=== PATIENT | female | born 1945 | race Two or more races ===

== ENCOUNTER 2017-07-26 08:44 | Outpatient (CLI) | payer OTHER ==
[~2017-07-26 08:44] MED LIST: CEFADROXIL500 MG PO; EVISTA60 MG; LIPITOR40 MG PO; NEURONTIN800 MG PO; PERCOCET 5/3251 TAB PO; SINGULAIR 10MG10 MG; XARELTO10 MG PO
== END 2017-07-26 11:45 | disposition home or self-care (01) ==
LOC: TOM 08:44
DX: K57.32 Diverticulitis of large intestine without perforation or abscess without bleeding (principal); R10.32 Left lower quadrant pain; R19.4 Change in bowel habit
CPT/HCPCS: 74177; Q9965

== ENCOUNTER 2018-02-13 10:55 | Outpatient (CLI) | payer OTHER | END 2018-02-13 11:17 | disposition home or self-care (01) | LOC: RAD 501 10:55 | DX: M25.561 Pain in right knee (principal); M25.562 Pain in left knee ==

== ENCOUNTER → 2018-08-14 | Outpatient (CLI) | payer OTHER ==
[~2018-08-14] MED LIST changes: +CYMBALTA30 MG PO; +HYOSCYAMINE0.125 M1 SL; +INTESTINEX680 M1 PO; +NORFLEX100MG PO; +NeurRONTin 400MG CAP PO
== END | disposition home or self-care (01) ==
LOC: RAD 501 08:47
DX: K57.32 Diverticulitis of large intestine without perforation or abscess without bleeding (principal); R10.32 Left lower quadrant pain; R19.4 Change in bowel habit

== ENCOUNTER 2018-08-19 08:04 | Outpatient (CLI) | payer OTHER ==
[~2018-08-19 08:04] MED LIST changes: -CYMBALTA30 MG PO; -HYOSCYAMINE0.125 M1 SL; -INTESTINEX680 M1 PO; -NORFLEX100MG PO; -NeurRONTin 400MG CAP PO
== END 2018-08-19 08:32 | disposition home or self-care (01) ==
LOC: LAB 08:04
DX: I10 Essential (primary) hypertension (principal)

== ENCOUNTER 2018-08-22 11:30 | Inpatient (IN) | payer OTHER ==
[~2018-08-22] VITALS: Ht 152.4 cm; Wt 54.9 kg
[2018-09-02] MEDS ORDERED: NORFLEX100MG PO (09:56)
[2018-09-02] MEDS ORDERED: HYOSCYAMINE0.125 M1 SL (09:56)
[2018-09-02] MEDS ORDERED: CYMBALTA30 MG PO (09:58)
[2018-09-02] MEDS ORDERED: NeurRONTin 400MG CAP PO (09:58)
[2018-09-02] MEDS ORDERED: INTESTINEX680 M1 PO (09:59)
== END 2018-09-02 13:09 | disposition home or self-care (01) | DRG 330 ==
LOC: ADM 11:30 → SURH 11:30 → EDSTATUS 11:30 → SURH 08-29 06:49 → O/R 08-29 06:49 → SURH 08-29 08:30
PROVIDERS: ADMIT Surgery
PROC: 0DJD8ZZ Inspection of Lower Intestinal Tract, Via Natural or Artificial Opening Endoscopic (ICD-10-PCS; 2018-08-29)
PROC: 0DTN4ZZ Resection of Sigmoid Colon, Percutaneous Endoscopic Approach (ICD-10-PCS; principal; 2018-08-29 08:30)
DX: K57.32 Diverticulitis of large intestine without perforation or abscess without bleeding (principal); D62 Acute posthemorrhagic anemia; N73.6 Female pelvic peritoneal adhesions (postinfective); I10 Essential (primary) hypertension; G89.18 Other acute postprocedural pain; M54.5 Low back pain; M81.8 Other osteoporosis without current pathological fracture; Z96.651 Presence of right artificial knee joint

== ENCOUNTER 2018-11-18 10:34 | Outpatient (CLI) | payer OTHER ==
[~2018-11-18 10:34] MED LIST changes: +CYMBALTA30 MG PO; +HYOSCYAMINE0.125 M1 SL; +INTESTINEX680 M1 PO; +NORFLEX100MG PO; +NeurRONTin 400MG CAP PO
== END 2018-11-18 10:41 | disposition home or self-care (01) ==
LOC: RAD 501 10:34
DX: T84.038A Mechanical loosening of other internal prosthetic joint, initial encounter (principal)

== ENCOUNTER 2019-06-27 11:03 | Inpatient (IN) | payer OTHER ==
[~2019-06-27] VITALS: Ht 149.9 cm; Wt 61.7 kg
[~2019-06-27 11:03] MED LIST changes: +NEURONTIN800 MG; -NEURONTIN800 MG PO
[2019-07-15] MEDS ORDERED: ATENOLOL50 MG PO (09:36)
[2019-07-15] MEDS ORDERED: VALACYCLOVIR500 MG PO (09:36)
[2019-07-15] MEDS ORDERED: CLARITIN10 M1 PO (09:37)
[2019-07-15] MEDS ORDERED: ASA81 MG PO (09:37)
[2019-07-15] MEDS ORDERED: AZELASTINE137 MCG/0. NASAL (09:38)
[2019-07-15] MEDS ORDERED: NASAL ALLERGY16.9 ML NASAL (09:38)
[2019-07-24] MEDS ORDERED: DUI500 PO (15:25)
[2019-07-24] MEDS ORDERED: PERCOCET 5-3251 EACH PO (15:25)
== END 2019-07-24 16:02 | disposition home or self-care (01) | DRG 483 ==
LOC: O/R 07-22 05:05 → SURH 07-22 05:05 → SURG 07-22 08:15 → SURH 07-22 14:46 → SURG 07-22 15:30 → SURH 07-24 16:02
PROVIDERS: ADMIT Orthopaedic Surgery
PROC: 0RNJ0ZZ Release Right Shoulder Joint, Open Approach (ICD-10-PCS; 2019-07-22)
PROC: 0RRJ0JZ Replacement of Right Shoulder Joint with Synthetic Substitute, Open Approach (ICD-10-PCS; principal; 2019-07-22 15:30)
DX: M19.011 Primary osteoarthritis, right shoulder (principal); D62 Acute posthemorrhagic anemia; M75.101 Unspecified rotator cuff tear or rupture of right shoulder, not specified as traumatic; I10 Essential (primary) hypertension

== ENCOUNTER 2019-12-29 10:13 | Emergency (ER) | payer OTHER ==
[~2019-12-29] VITALS: Ht 149.9 cm; Wt 64.9 kg
[~2019-12-29 10:13] MED LIST changes: +ASA81 MG PO; +ATENOLOL50 MG PO; +AZELASTINE137 MCG/0. NASAL; +CLARITIN10 M1 PO; +DUI500 PO; +NASAL ALLERGY16.9 ML NASAL; +PERCOCET 5-3251 EACH PO; +VALACYCLOVIR500 MG PO
[2019-12-29] MEDS ORDERED: INTESTINEX680 M1 PO (16:04)
[2019-12-29] MEDS ORDERED: PEPCID AC20 MG PO (16:04)
== END 2019-12-29 16:16 | disposition home or self-care (01) ==
LOC: ER 10:13
DX: R10.32 Left lower quadrant pain (principal); Z03.818 Encounter for observation for suspected exposure to other biological agents ruled out; R53.81 Other malaise

== ENCOUNTER 2020-02-24 07:23 | Outpatient (CLI) | payer OTHER ==
[~2020-02-24 07:23] MED LIST changes: +PEPCID AC20 MG PO
== END 2020-02-24 07:33 | disposition home or self-care (01) ==
LOC: MRI 07:23
PROVIDERS: ATTEND Internal Medicine Hematology & Oncology
DX: D51.0 Vitamin B12 deficiency anemia due to intrinsic factor deficiency (principal); D51.3 Other dietary vitamin B12 deficiency anemia; K62.5 Hemorrhage of anus and rectum; R19.5 Other fecal abnormalities; K57.30 Diverticulosis of large intestine without perforation or abscess without bleeding; I10 Essential (primary) hypertension; E78.2 Mixed hyperlipidemia; Z86.010 Personal history of colon polyps; A60.00 Herpesviral infection of urogenital system, unspecified; E03.8 Other specified hypothyroidism
CPT/HCPCS: 74183; A9575

== ENCOUNTER 2020-03-13 13:35 | Emergency (ER) | payer OTHER ==
[~2020-03-13] VITALS: Ht 149.9 cm; Wt 64.9 kg
== END 2020-03-13 17:57 | disposition home or self-care (01) ==
LOC: ER 13:35
DX: K59.09 Other constipation (principal); R10.32 Left lower quadrant pain

== ENCOUNTER 2020-04-12 13:24 | Emergency (ER) | payer OTHER ==
[~2020-04-12] VITALS: Ht 149.9 cm; Wt 64.9 kg
[2020-04-12] MEDS ORDERED: MUPIROCIN1 G1 TOP (14:48)
[2020-04-12] MEDS ORDERED: DUI500 PO (14:48)
== END 2020-04-12 15:19 | disposition home or self-care (01) ==
LOC: ER 13:24
DX: S30.871A Other superficial bite of abdominal wall, initial encounter (principal); W54.0XXA Bitten by dog, initial encounter; Y93.89 Activity, other specified; Y92.89 Other specified places as the place of occurrence of the external cause; Y99.8 Other external cause status

== ENCOUNTER 2020-05-03 07:14 | Emergency (ER) | payer OTHER ==
[~2020-05-03] VITALS: Ht 149.9 cm; Wt 64.9 kg
[~2020-05-03 07:14] MED LIST changes: +MUPIROCIN1 G1 TOP
[2020-05-03] MEDS ORDERED: VALACYCLOVIR500 MG PO (07:29)
[2020-05-03] MEDS ORDERED: ULTRAM50 MG PO (14:33)
== END 2020-05-03 14:44 | disposition home or self-care (01) ==
LOC: ER 07:14
DX: K66.0 Peritoneal adhesions (postprocedural) (postinfection) (principal); R10.11 Right upper quadrant pain; Z03.818 Encounter for observation for suspected exposure to other biological agents ruled out; Z60.2 Problems related to living alone

== ENCOUNTER 2020-07-29 11:43 | Emergency (ER) | payer OTHER ==
[~2020-07-29] VITALS: Ht 149.9 cm; Wt 65.3 kg
[~2020-07-29 11:43] MED LIST changes: +ULTRAM50 MG PO
[2020-07-29] MEDS ORDERED: TENORMIN50 M1 (12:33)
[2020-07-29] MEDS ORDERED: ALLERGY RELIE15.8 ML (12:34)
[2020-07-29] MEDS ORDERED: GRALISE600 MG (12:34)
[2020-07-29] MEDS ORDERED: PANTOPRAZOLE SO40 M2 (12:36)
[2020-07-30] MEDS ORDERED: PEPCID AC20 MG PO (12:57)
[2020-07-30] MEDS ORDERED: LEVSIN/SL0.125 MG PO (12:57)
== END 2020-07-30 13:32 | disposition home or self-care (01) ==
LOC: ER 11:43
DX: K29.60 Other gastritis without bleeding (principal); R10.11 Right upper quadrant pain

== ENCOUNTER 2020-08-06 07:03 | Emergency (ER) | payer OTHER ==
[~2020-08-06] VITALS: Ht 149.9 cm; Wt 64.9 kg
[~2020-08-06 07:03] MED LIST changes: +ALLERGY RELIE15.8 ML; +GRALISE600 MG; +LEVSIN/SL0.125 MG PO; +PANTOPRAZOLE SO40 M2; +TENORMIN50 M1
[2020-08-06] MEDS ORDERED: VITAMIN B-121000 MCG PO (07:27)
[2020-08-06] MEDS ORDERED: SINGULAIR10 MG PO (07:28)
[2020-08-06] MEDS ORDERED: CALTRATE 600+D1 EAC1 PO (07:28)
== END 2020-08-06 18:43 | disposition home or self-care (01) ==
LOC: ER 07:03
DX: K52.89 Other specified noninfective gastroenteritis and colitis (principal); Z03.818 Encounter for observation for suspected exposure to other biological agents ruled out; Z60.2 Problems related to living alone

== ENCOUNTER 2020-08-13 13:03 | Emergency (ER) | payer OTHER ==
[~2020-08-13] VITALS: Ht 149.9 cm; Wt 64.9 kg
[~2020-08-13 13:03] MED LIST changes: +CALTRATE 600+D1 EAC1 PO; +SINGULAIR10 MG PO; +VITAMIN B-121000 MCG PO
[2020-08-13] MEDS ORDERED: CARAFATE1 GM PO (16:35)
[2020-08-13] MEDS ORDERED: PEPCID AC20 MG PO (16:35)
== END 2020-08-13 16:40 | disposition home or self-care (01) ==
LOC: ER 13:03
DX: K29.60 Other gastritis without bleeding (principal)

== ENCOUNTER 2020-11-23 07:12 | Emergency (ER) | payer OTHER ==
[~2020-11-23] VITALS: Ht 149.9 cm; Wt 64.9 kg
[~2020-11-23 07:12] MED LIST changes: +CARAFATE1 GM PO
[2020-11-23] MEDS ORDERED: ECOTRIN81 MG (07:32)
[2020-11-23] MEDS ORDERED: PEPCID AC20 MG PO (13:00)
[2020-11-23] MEDS ORDERED: KETO10TA2 PO (13:00)
== END 2020-11-23 14:57 | disposition home or self-care (01) ==
LOC: ER 07:12
DX: R10.32 Left lower quadrant pain (principal)

== ENCOUNTER 2021-04-04 11:10 | Outpatient (CLI) | payer OTHER ==
[~2021-04-04 11:10] MED LIST changes: +ECOTRIN81 MG; +KETO10TA2 PO
== END 2021-04-04 11:18 | disposition home or self-care (01) ==
LOC: RAD 11:10
PROVIDERS: ATTEND Physical Medicine & Rehabilitation
DX: M54.2 Cervicalgia (principal); M54.6 Pain in thoracic spine; M54.59 Other low back pain

== ENCOUNTER 2021-08-03 07:59 | Outpatient (CLI) | payer OTHER | END 2021-08-03 08:04 | disposition home or self-care (01) | LOC: TOM 07:59 | PROVIDERS: ATTEND Internal Medicine Pulmonary Disease | DX: J43.2 Centrilobular emphysema (principal); Z72.0 Tobacco use; R06.02 Shortness of breath ==

== ENCOUNTER 2021-08-05 08:16 | Outpatient (CLI) | payer OTHER | END 2021-08-05 08:36 | disposition home or self-care (01) | LOC: TOM 08:16 | PROVIDERS: ATTEND Internal Medicine Cardiovascular Disease | DX: R10.9 Unspecified abdominal pain (principal); K57.30 Diverticulosis of large intestine without perforation or abscess without bleeding ==

== ENCOUNTER 2021-12-26 07:11 | Outpatient (CLI) | payer OTHER | END 2021-12-26 07:12 | disposition home or self-care (01) | LOC: NUCLEAR 07:11 | PROVIDERS: ATTEND Specialist | DX: I25.10 Atherosclerotic heart disease of native coronary artery without angina pectoris (principal); R07.89 Other chest pain; J45.998 Other asthma | CPT/HCPCS: 78452; 93017; A9500; J1250 ==

== ENCOUNTER 2022-03-09 10:06 | Outpatient (CLI) | payer OTHER | END 2022-03-09 10:13 | disposition home or self-care (01) | LOC: RAD 10:06 | PROVIDERS: ATTEND Internal Medicine Cardiovascular Disease | DX: M12.9 Arthropathy, unspecified (principal); M48.47XA Fatigue fracture of vertebra, lumbosacral region, initial encounter for fracture ==

== ENCOUNTER 2022-03-16 07:16 | Outpatient (CLI) | payer OTHER | END 2022-03-16 07:17 | disposition home or self-care (01) | LOC: NUCLEAR 07:16 | PROVIDERS: ATTEND Internal Medicine Gastroenterology | DX: R10.11 Right upper quadrant pain (principal) | CPT/HCPCS: 78227; A9537; J2805 ==

== ENCOUNTER 2022-03-27 09:05 | Outpatient (CLI) | payer OTHER | END 2022-03-27 09:07 | disposition home or self-care (01) | LOC: RAD 09:05 | PROVIDERS: ATTEND Anesthesiology | DX: M79.604 Pain in right leg (principal); M79.605 Pain in left leg ==

== ENCOUNTER 2022-10-09 10:39 | Outpatient (CLI) | payer OTHER | END 2022-10-09 10:45 | disposition home or self-care (01) | LOC: NUCLEAR 10:39 | PROVIDERS: ATTEND Physical Medicine & Rehabilitation | DX: I87.2 Venous insufficiency (chronic) (peripheral) (principal) ==

== ENCOUNTER 2022-10-09 12:16 | Outpatient (CLI) | payer OTHER | END 2022-10-09 12:19 | disposition home or self-care (01) | LOC: RAD 12:16 | PROVIDERS: ATTEND Physical Medicine & Rehabilitation | DX: M54.6 Pain in thoracic spine (principal); M54.59 Other low back pain ==

== ENCOUNTER 2022-10-23 11:22 | Outpatient (CLI) | payer OTHER | END 2022-10-23 11:28 | disposition home or self-care (01) | LOC: RAD 11:22 | PROVIDERS: ATTEND Orthopaedic Surgery | DX: M79.11 Myalgia of mastication muscle (principal); M17.0 Bilateral primary osteoarthritis of knee ==

== ENCOUNTER → 2023-01-08 | Outpatient (CLI) | payer OTHER | END | disposition home or self-care (01) | LOC: MRI 08:27 | PROVIDERS: ATTEND Orthopaedic Surgery | DX: M77.11 Lateral epicondylitis, right elbow (principal) | CPT/HCPCS: 73218 ==

== ENCOUNTER 2023-04-12 07:01 | Outpatient (CLI) | payer OTHER | END 2023-04-12 07:07 | disposition home or self-care (01) | LOC: RAD 07:01 | DX: M19.221 Secondary osteoarthritis, right elbow (principal) ==

== ENCOUNTER → 2023-06-22 | Outpatient (CLI) | payer OTHER | END | disposition home or self-care (01) | LOC: RAD 08:39 | PROVIDERS: ATTEND Orthopaedic Surgery | DX: M19.021 Primary osteoarthritis, right elbow (principal) ==

== ENCOUNTER 2023-07-17 01:01 | Emergency (ER) | payer OTHER ==
[~2023-07-17] VITALS: Ht 152.4 cm; Wt 63.5 kg
[2023-07-17] MEDS ORDERED: PEPCID AC20 MG (01:18)
[2023-07-17] MEDS ORDERED: PROTONIX40 MG (01:18)
[2023-07-17] MEDS ORDERED: NASACORT16.9 ML (01:19)
[2023-07-17] MEDS ORDERED: NEURONTIN300 MG (01:19)
[2023-07-17] MEDS ORDERED: XYZAL5 MG (01:20)
[2023-07-17 03:48] LABS: HEMATOCRIT 40.6 % (36.0-45.00); HEMOGLOBIN 13.3 g/dL (12.0-15.00); MEAN CELL VOLUME 88.4 fL (80.00-100.00); MEAN CORPUSCULAR HGB CONC 32.8 g/dl (32.0-36.0); PLATELET COUNT 216 K/uL (150-450); RED BLOOD COUNT 4.59 M/uL (4.00-6.00); RED CELL DISTRIBUTION WIDTH 13.9 % (11.5-14.5)
== END 2023-07-17 08:34 | disposition home or self-care (01) ==
LOC: ER 01:01
DX: U07.1 COVID-19 (principal); J06.9 Acute upper respiratory infection, unspecified; R53.81 Other malaise; R51.9 Headache, unspecified

== ENCOUNTER 2023-08-27 07:29 | Outpatient (CLI) | payer OTHER ==
[~2023-08-27 07:29] MED LIST changes: +NASACORT16.9 ML; +NEURONTIN300 MG; +PEPCID AC20 MG; +PROTONIX40 MG; +XYZAL5 MG
== END 2023-08-27 07:31 | disposition home or self-care (01) ==
LOC: MAMO-SONO 07:29
PROVIDERS: ATTEND Internal Medicine Hematology & Oncology
DX: D51.0 Vitamin B12 deficiency anemia due to intrinsic factor deficiency (principal); D50.0 Iron deficiency anemia secondary to blood loss (chronic); D51.3 Other dietary vitamin B12 deficiency anemia; K62.5 Hemorrhage of anus and rectum; R19.5 Other fecal abnormalities; K57.30 Diverticulosis of large intestine without perforation or abscess without bleeding; I10 Essential (primary) hypertension; E78.2 Mixed hyperlipidemia; Z86.010 Personal history of colon polyps; A60.00 Herpesviral infection of urogenital system, unspecified; E03.8 Other specified hypothyroidism; R10.10 Upper abdominal pain, unspecified; Z12.31 Encounter for screening mammogram for malignant neoplasm of breast

== ENCOUNTER 2024-01-15 09:23 | Outpatient (CLI) | payer OTHER | END 2024-01-15 09:27 | disposition home or self-care (01) | LOC: RAD 09:23 | PROVIDERS: ATTEND Internal Medicine Rheumatology | DX: M19.071 Primary osteoarthritis, right ankle and foot (principal) ==

== ENCOUNTER 2024-01-18 08:54 | Outpatient (CLI) | payer OTHER | END 2024-01-18 09:15 | disposition home or self-care (01) | LOC: MRI 08:54 | PROVIDERS: ATTEND Neuromusculoskeletal Medicine & OMM | DX: I72.9 Aneurysm of unspecified site (principal); I65.1 Occlusion and stenosis of basilar artery; I65.09 Occlusion and stenosis of unspecified vertebral artery; I65.29 Occlusion and stenosis of unspecified carotid artery; Q28.2 Arteriovenous malformation of cerebral vessels; F09 Unspecified mental disorder due to known physiological condition; F03.90 Unspecified dementia, unspecified severity, without behavioral disturbance, psychotic disturbance, mood disturbance, and anxiety | CPT/HCPCS: 70544; 70551 ==

== ENCOUNTER 2024-02-05 07:40 | Outpatient (CLI) | payer OTHER | END 2024-02-05 07:52 | disposition home or self-care (01) | LOC: TOM 07:40 | PROVIDERS: ATTEND Neuromusculoskeletal Medicine & OMM | DX: I65.23 Occlusion and stenosis of bilateral carotid arteries (principal) | CPT/HCPCS: 70498; Q9965 ==

== ENCOUNTER 2024-03-31 09:09 | Outpatient (CLI) | payer OTHER | END 2024-03-31 09:40 | disposition home or self-care (01) | LOC: MRI 09:09 | PROVIDERS: ATTEND Internal Medicine Cardiovascular Disease | DX: M46.47 Discitis, unspecified, lumbosacral region (principal) | CPT/HCPCS: 72148 ==

== ENCOUNTER 2024-04-09 12:25 | Outpatient (CLI) | payer OTHER | END 2024-04-09 13:30 | disposition home or self-care (01) | LOC: MRI 12:25 | PROVIDERS: ATTEND Otolaryngology | DX: M99.08 Segmental and somatic dysfunction of rib cage (principal) | CPT/HCPCS: 73721 ==

== ENCOUNTER 2024-04-24 08:47 | Outpatient (CLI) | payer OTHER | END 2024-04-24 09:03 | disposition home or self-care (01) | LOC: TOM 08:47 | PROVIDERS: ATTEND Colon & Rectal Surgery | DX: R10.9 Unspecified abdominal pain (principal); M05.721 Rheumatoid arthritis with rheumatoid factor of right elbow without organ or systems involvement ==

== ENCOUNTER 2024-05-05 08:51 | Outpatient (CLI) | payer OTHER | END 2024-05-05 09:06 | disposition home or self-care (01) | LOC: TOM 08:51 | DX: I65.23 Occlusion and stenosis of bilateral carotid arteries (principal) | CPT/HCPCS: 70498; Q9965 ==

== ENCOUNTER 2024-05-20 09:14 | Outpatient (CLI) | payer OTHER | END 2024-05-20 09:20 | disposition home or self-care (01) | LOC: RAD 09:14 | PROVIDERS: ATTEND Internal Medicine Cardiovascular Disease | DX: M12.9 Arthropathy, unspecified (principal) ==

== ENCOUNTER → 2024-07-25 | Outpatient (CLI) | payer OTHER | END | disposition home or self-care (01) | LOC: RAD 12:03 | PROVIDERS: ATTEND Physical Medicine & Rehabilitation | DX: M16.12 Unilateral primary osteoarthritis, left hip (principal); M54.2 Cervicalgia ==

== ENCOUNTER 2025-01-15 10:57 | Outpatient (CLI) | payer OTHER | END 2025-01-15 11:02 | disposition home or self-care (01) | LOC: RAD 10:57 | PROVIDERS: ATTEND Physical Medicine & Rehabilitation | DX: M16.12 Unilateral primary osteoarthritis, left hip (principal); M19.041 Primary osteoarthritis, right hand; M19.042 Primary osteoarthritis, left hand ==